=== PATIENT | female | born 1990 | race Caucasian/White ===

== ENCOUNTER 2017-01-26 16:24 | Emergency (ER) | payer OTHER ==
--- NOTE | 2017-01-26 16:50 | ED ---
Skin Complaint - HPI Summary HPI Summary: 26 yr old female with chief complaint of rash to face, neck. HPI: For Three days the patient has had rash to the right lateral mouth with a sore just inside the lip. The patient states it [place] slightly. She also states that she has some rash to the right lateral neck. She has no rash to the rest of the face. She states she went to [place] and just returned. She works in a tanning salon. - History of Current Complaint Time Seen by Provider: 01/26/17 16:39 Stated Complaint: SKIN COMPLAINT Hx Last Menstrual Period: DEPO - Allergy/Home Medications Allergies/Adverse Reactions: Allergies Allergy/AdvReac Type Severity Reaction Status Date / Time Diphenhydramine Allergy Mild Rash Verified 02/26/15 20:14 [From Benadryl] Home Medications: Home Medications Misc. Devices [Nasal [place] Bottle 20Ml] 1 spray INH BID 01/26/17 [History Confirmed 01/26/17] Steroid Inhaler 1 inhaler INH BID 01/26/17 [History Confirmed 01/26/17] medroxyPROGESTERone ACETATE* [DEPO-Provera*] 1 vial IM MONTHLY 01/26/17 [ History Confirmed 01/26/17] PMH/Surg Hx/FS Hx/Imm Hx Previously Healthy: Yes Endocrine/Hematology History: Denies: Hx Diabetes Respiratory History: Reports: Hx Asthma - Family History Known Family History: Positive: None - Social History Alcohol Use: Weekly Substance Use Type: Reports: None Smoking Status (MU): Never Smoked Tobacco Review of Systems Constitutional: Negative Positive: Rash All Other Systems Reviewed And Are Negative: Yes Physical Exam Triage Information Reviewed: Yes Vital Signs Reviewed: Yes Appearance: Positive: Well-Appearing, No Pain Distress Skin: Positive: Warm, Erythema @ - vesicles on an erythematous base corner of the right mouth on red base. No other rash on the face. She has three red spots on the right lateral neck over the sternocleidomastoid. no obvious vesicles. Course/Dx - Course Course Of Treatment: 26 yr old with rash on face and on side of neck. She will be covered with valtrex for a week. Follow up with PMD. SUspect herpes labialis. - Diagnoses Provider Diagnoses: Herpes labialis Discharge - Discharge Plan Condition: Good Disposition: HOME Prescriptions: ValACYclovir (*) [Valtrex 1 GM(*)] 1 gm PO BID #14 tab Patient Education Materials: Oral Herpes Simplex Virus Infections (ED) Referrals: DORA Hernandez [Primary Care Provider] -
[2017-01-26 16:51] VITALS: BP 121/80
== END 2017-01-26 16:52 | disposition home or self-care (01) ==
LOC: UCCORT 16:24
DX: B00.1 Herpesviral vesicular dermatitis (principal); J45.909 Unspecified asthma, uncomplicated
CPT/HCPCS: 99212; G0463

== ENCOUNTER 2019-10-21 10:48 | Emergency (ER) | payer SELFPAY ==
--- NOTE | 2019-10-21 11:47 | UC ---
FLU HPI - HPI Summary HPI Summary: 29-year-old female with flulike symptoms over the past 4 days. - History of Current Complaint Stated Complaint: SORE THROAT CONGESTION Time Seen by Provider: 10/21/19 11:46 Hx Obtained From: Patient Hx Last Menstrual Period: DEPO ?: No Onset/Duration: Gradual Onset, Lasting Days Severity Currently: Mild Severity Initially: Moderate Associated Signs & Symptoms: Positive: Fever, Myalgia, Cough, Sore Throat - Scratchy throat, Nasal Congestion - Allergy/Home Medications Allergies/Adverse Reactions: Allergies Allergy/AdvReac Type Severity Reaction Status Date / Time diphenhydramine Allergy Rash Verified 10/21/19 11:43 Home Medications: Home Medications D-Methorphan/PE/Acetaminophen [Vicks Dayquil Cold & Flu] 2 cap PO Q6H PRN [History Confirmed 10/21/19] Dextromethorphn/Acetaminoph/Cp [Vicks Nyquil Cold & Flu N] 1 liq PO Q6H PRN 07/31 [History Confirmed 10/21/19] EPINEPHrine [Primatene Mist] 2 puff INH Q3H PRN 10/21/19 [History Confirmed 07/31] PMH/Surg Hx/FS Hx/Imm Hx Previously Healthy: Yes - Surgical History Surgical History: None - Family History Known Family History: Positive: None - Social History Alcohol Use: Weekly Substance Use Type: None Smoking Status (MU): Never Smoked Tobacco Review of Systems All Other Systems Reviewed And Are Negative: Yes Constitutional: Positive: Fever, Chills ENT: Positive: Sore Throat - Scratchy throat, Nasal Discharge Respiratory: Positive: Cough - Dry nonproductive cough. Is Patient Immunocompromised?: No Physical Exam Triage Information Reviewed: Yes Appearance: Well-Appearing, No Pain Distress, Well-Nourished Vital Signs Reviewed: Yes Eyes: Positive: Conjunctiva Clear ENT: Positive: Pharynx normal, Nasal drainage - Clear nasal coryza, TMs normal, Uvula midline Neck: Positive: Supple, Nontender, No Lymphadenopathy Respiratory: Positive: Lungs clear, Normal breath sounds, No respiratory distress, No accessory muscle use Cardiovascular: Positive: No Murmur, Pulses Normal, Brisk Capillary Refill, Tachycardia Abdomen Description: Positive: Nontender, No Organomegaly, Soft. Negative: CVA Tenderness (R), CVA Tenderness (L), Distended, Guarding, Hepatomegaly, Splenomegaly Bowel Sounds: Positive: Present Musculoskeletal Exam: Normal Neurological Exam: Normal Psychological Exam: Normal Skin Exam: Normal Flu Course/Dx - Course Course Of Treatment: The patient is comfortable here and does not appear toxic. She was given the option of Tamiflu treatment although she is 4 days into the illness and she opted not to be treated with Tamiflu and rather do comfort measures at home. She is follow-up with her care provider in 3 or 4 days if no improvement. - Differential Dx/Diagnosis Provider Diagnosis: Influenza Discharge ED - Sign-Out/Discharge Documenting (check all that apply): Patient Departure All imaging exams completed and their final reports reviewed: No Studies - Discharge Plan Condition: Fair Disposition: HOME Patient Education Materials: Influenza (ED) Forms: *Work Release Referrals: Nedra Arora PA [Primary Care Provider] - Additional Instructions: Increase fluids, but talk with the pharmacist regarding the cold medications that you're taking as well as Tylenol or Motrin. The cold medications may have acetaminophen and/or ibuprofen in them. Follow-up with your primary care provider if no improvement in 2 or 3 days or if worsening symptoms. - Billing Disposition and Condition Condition: FAIR Disposition: Home
[2019-10-21 11:49] VITALS: BP 124/67
== END 2019-10-21 12:05 | disposition home or self-care (01) ==
LOC: UCCORT 10:48
DX: J11.1 Influenza due to unidentified influenza virus with other respiratory manifestations (principal); Z88.8 Allergy status to other drugs, medicaments and biological substances
CPT/HCPCS: 99211; G0463